=== PATIENT | female | born 1985 | race African-American/Black ===

== ENCOUNTER 2016-10-21 05:25 | Emergency (ER) | payer SELFPAY ==
[~2016-10-21] VITALS: Ht 160 cm; Wt 70.6 kg
[2016-10-21 05:39] VITALS: BP 136/97; PULSE 104; RESP 12; TEMP 98.9; O2SAT 98
[2016-10-21 06:16] LABS: BLOOD, URINE TRACE (NEG); GLUCOSE,URINE NEG (NEG); KETONE, URINE NEG (NEG); NITRITE,URINE NEG (NEG); PH, URINE 5.5 (5.0-8.5)
[2016-10-21 06:30] LABS: COMMENT (UR) CULT NOT INDICATED; CULTURE IF INDICATED CULT NOT INDICATED; RBC, URINE 0-3 /hpf (0-3); SQUAMOUS EPITHELIAL CELL URINE 0-5 /hpf (0-5); URINE COLOR STRAW (YELLW/STRAW); WBC, URINE 0-2 /hpf (0-5)
--- NOTE | 2016-10-21 06:46 | PD ---
HPI Chief Complaint: Packing And Wrapping Supervisor Problem/Complaint Time Seen by Provider: 06:43 Travel History International Travel<30 days: No Contact w/Intl Traveler<30days: No Traveled to known affect area: No History of Present Illness HPI The patient is a 31-year-old female, G0, P0, A0 that has had a foul-smelling vaginal discharge for 4 days. She denies any fever or abdominal pain. She denies any dysuria, frequency or urgency. She has had slight nausea without any vomiting. PFSH Past Medical History Anemia: Yes Blood Disorders: No Bipolar Disorder: Yes Anxiety: Yes Depression: Yes Cancer: No Cardiovascular Problems: No Diminished Hearing: No Endocrine: No Genitourinary: No Immune Disorder: No Musculoskeletal: No Neurologic: No Psychiatric: Yes (BIPOLAR) Reproductive: No Respiratory: No Immunizations Current: Yes Schizophrenia: Yes ?: Not LMP: 10/10/16 : 0 Para: 0 Miscarriage: 0 : 0 Past Surgical History Abdominal Surgery: No Cardiac Surgery: No Endocrine Surgery: No Genitourinary Surgery: No Gynecologic Surgery: No Thoracic Surgery: No Other Surgery: Yes Social History Alcohol Use: Yes (4 BEERS DAILY) Tobacco Use: Yes (1 PPD) Substance Use: No (QUIT COCAINE: 2016 STATED BY PT ON 10/21/16) Allergies-Medications (Allergen,Severity, Reaction): Coded Allergies: No Known Allergies (Verified , 10/21/16) Reported Meds & Prescriptions Reported Meds & Active Scripts Active No Active Prescriptions or Reported Medications Review of Systems Except as stated in HPI: all other systems reviewed are Neg Physical Exam Narrative GENERAL: The patient is alert, oriented 3 in no apparent distress. The heart rate is 104 and the blood pressure 136/97 but the rest the vital signs are normal. SKIN: Focused skin assessment warm/dry. HEAD: Atraumatic. Normocephalic. EYES: Pupils equal and round. No scleral icterus. No injection or drainage. ENT: No nasal bleeding or discharge. Mucous membranes pink and moist. NECK: Trachea midline. No JVD. CARDIOVASCULAR: Regular rate and rhythm. No murmur appreciated. RESPIRATORY: No accessory muscle use. Clear to auscultation. Breath sounds equal bilaterally. GASTROINTESTINAL: Abdomen soft, non-tender, nondistended. Hepatic and splenic margins not palpable. MUSCULOSKELETAL: No obvious deformities. No clubbing. No cyanosis. No edema. NEUROLOGICAL: Awake and alert. No obvious cranial nerve deficits. Motor grossly within normal limits. Normal speech. PSYCHIATRIC: Appropriate mood and affect; insight and judgment normal. GENITOURINARY: Normal external genitalia without lesions or erythema. Vaginal vault without blood but there is an off white, foamy, foul-smelling drainage. Cervical os was closed with clear drainage. No cervical motion tenderness. Uterus nontender and nonenlarged. Bilateral adnexa nontender without masses. Data Data Last Documented VS Vital Signs Date Time Temp Pulse Resp B/P Pulse Ox O2 Delivery O2 Flow Rate FiO2 10/21/16 07:02 16 10/21/16 05:39 98.9 104 136/97 98 Orders Urinalysis - C+S If Indicated (10/21/16 05:56) Gc And Chlamydia Pcr (10/21/16 06:43) Wet Prep Profile (10/21/16 06:43) Ed Urine Pregnancytest Poc (10/21/16 06:43) Labs Laboratory Tests Test 10/21/16 10/21/16 05:55 06:40 Urine Color STRAW Urine Turbidity CLEAR Urine pH 5.5 Urine Specific [place] 1.002 Urine Protein NEG mg/dL Urine Glucose (UA) NEG mg/dL Urine Ketones NEG mg/dL Urine Occult Blood TRACE Urine Nitrite NEG Urine Bilirubin NEG Urine Leukocyte Esterase TRACE Urine RBC 0-3 /hpf Urine WBC 0-2 /hpf Urine Squamous Epithelial 0-5 /hpf Cells Urine Bacteria NONE /hpf Microscopic Urinalysis Comment CULT NOT INDICATED Clue Cells (Wet Prep) PRESENT Vaginal Trichomonas (Wet Prep) PRESENT Vaginal Yeast (Wet Prep) NONE SEEN MDM Medical Decision Making Medical Screen Exam Complete: Yes Emergency Medical Condition: Yes Medical Record Reviewed: Yes Interpretation(s) The urine shows trace occult blood and trace leukocyte esterase but is otherwise normal and culture is not indicated. The wet prep is positive for clue cells and Trichomonas but is negative for yeast. Differential Diagnosis Trichomonas vaginitis, bacterial vaginosis, vaginal yeast infection, urinary tract infection Narrative Course The patient has Trichomonas vaginitis and bacterial vaginosis. Plan: The patient be given Flagyl 500 mg 3 times a day for 7 days. She needs to get her partner treated as well simultaneously. Diagnosis Primary Impression: Trichomonas vaginalis infection Additional Impression: Bacterial vaginosis Additional Instructions: The antibiotic is Flagyl and it is taken 3 times a day for 7 days. You cannot drink alcohol with Flagyl. You need to get your partner treated simultaneously or this will come right back. Follow-up with a tread tuber machine operator next week. Med/Other Pt SpecificInfo: Prescription(s) given Scripts Metronidazole (Flagyl)500 Mg [id number] Mg PO TID 7 Days Ref 0 Prov:Nader Whitney MD 10/21/16 Disposition: 01 DISCHARGE HOME Condition: Stable Nader Whitney MD Oct 21, 2016 06:46
[2016-10-21] MEDS ORDERED: METR-1 PO (07:21)
[2016-10-21] MEDS ORDERED: metroNIDAZOLE 500 MG TAB PO ONE (07:30)
[2016-10-21 11:52] LABS: CHLAMYDIA PCR NOT DETECTED (NOT DETECT); NEISSERIA PCR NOT DETECTED (NOT DETECT)
== END 2016-10-21 07:41 | disposition home or self-care (01) ==
LOC: PHED 05:25
DX: A59.01 Trichomonal vulvovaginitis (principal); N76.0 Acute vaginitis
CPT/HCPCS: 81001; 84703; 87210; 87491; 87591; 99283

== ENCOUNTER 2017-01-27 19:14 | Emergency (ER) | payer SELFPAY ==
[~2017-01-27] VITALS: Ht 160 cm; Wt 72.5 kg
[~2017-01-27 19:14] MED LIST: METR-1 PO
[2017-01-27 19:21] VITALS: BP 128/74; PULSE 114; RESP 16; TEMP 98.8; O2SAT 99
[2017-01-27] MEDS ORDERED: IBUPROFEN 600 MG TAB PO ONE (21:00)
--- NOTE | 2017-01-27 21:03 | PD ---
HPI Chief Complaint: Injury Time Seen by Provider: 20:53 Travel History International Travel<30 days: No Contact w/Intl Traveler<30days: No Traveled to known affect area: No History of Present Illness HPI 31-year-old female brought in by ambulance for evaluation of right second toe pain. The patient reports that she has had pain in this toe for the last 2 months and is located at her distal toe. She denies trauma. No fevers or chills. No history of diabetes. Pain is moderate, worsening, constant, worse with palpation. PFSH Past Medical History Anemia: Yes Blood Disorders: No Bipolar Disorder: Yes Anxiety: Yes Depression: Yes Cancer: No Cardiovascular Problems: No Diminished Hearing: No Endocrine: No Genitourinary: No Immune Disorder: No Musculoskeletal: No Neurologic: No Psychiatric: Yes (BIPOLAR) Reproductive: No Respiratory: No Immunizations Current: Yes Schizophrenia: Yes Tetanus Vaccination: Unknown Influenza Vaccination: No ?: Not LMP: 01/19/17 : 0 Para: 0 Miscarriage: 0 : 0 Past Surgical History Abdominal Surgery: No Cardiac Surgery: No Endocrine Surgery: No Genitourinary Surgery: No Gynecologic Surgery: No Thoracic Surgery: No Other Surgery: Yes Social History Alcohol Use: Yes (occaisonally) Tobacco Use: Yes (1 PPD) Substance Use: No (QUIT COCAINE: 2016 STATED BY PT ON 01/27/17) Allergies-Medications (Allergen,Severity, Reaction): Coded Allergies: No Known Allergies (Verified , 01/27/17) Reported Meds & Prescriptions Reported Meds & Active Scripts Active Review of Systems Except as stated in HPI: all other systems reviewed are Neg Physical Exam Narrative GENERAL: Well-developed, well-nourished, awake, alert, comfortable, no apparent distress. CARDIOVASCULAR: Regular rate and rhythm. Bilateral dorsalis pedis pulses are brisk and equal. RESPIRATORY: No accessory muscle use. MUSCULOSKELETAL: Right second toe without obvious deformity, without warmth or erythema, with mild hypertrophy of the toenail, no open wounds, normal capillary refill. NEUROLOGICAL: Awake and alert. No obvious cranial nerve deficits. Motor grossly within normal limits. Normal speech. PSYCHIATRIC: Appropriate mood and affect; insight and judgment normal. Data Data Last Documented VS Vital Signs Date Time Temp Pulse Resp B/P (MAP) Pulse Ox O2 Delivery O2 Flow Rate FiO2 01/27/17 19:21 98.8 114 16 128/74 (92) 99 Room Air Orders Orders Toe (Min 2vws) (01/27/17 ) Ibuprofen (Motrin) (01/27/17 21:00) Lidocaine 1% Inj (50 Ml) (Xylocaine 1% I (01/27/17 22:15) Lidocaine 2% Inj (Xylocaine 2% Inj) (01/27/17 22:06) MDM Medical Decision Making Medical Screen Exam Complete: Yes Emergency Medical Condition: Yes Differential Diagnosis Toe contusion, toe sprain, osteomyelitis less likely, ingrown toenail Narrative Course Right toe x-ray: CONCLUSION: No bony abnormality is seen at the second digit. There is surgical hardware at the distal tibia and fibula. Patient was made aware of x-ray findings. On physical exam there are no signs of infection such as paronychia or felon. No skin breaks to the second toe. The toe has normal capillary refill, however is tender around the toenail. She has asked me to take the toenail off. She understands that there are risks to this procedure including continued pain and infection as well as bleeding. She also understands that the toenail may not grow back. She still would like me to try to take her toenail off that she believes this may leave her pain. Right second toe digital block was performed and the toenail was removed. There was no bleeding. On the nailbed there is a firm/slightly darkened nodule. I told the patient that she must follow-up with podiatry regarding this as this could be a melanoma. She understands the importance of follow-up. She is stable for discharge home with outpatient follow-up. Procedures Procedure Narrative Right second toe digital block: Right toe was prepped with ChloraPrep. A total of 2 cc of 2% lidocaine was used to perform a digital block. Tolerated well. No Medications. Right second toenail removal: After digital block was performed, under sterile conditions the toenail was removed with gentle traction using basic pickups. Tolerated well. No complications. No bleeding. Diagnosis Primary Impression: Ingrown toenail Referrals: Maicol Chatman DPMark 3 days Pin Setter Primary Care Physician 3 days Additional Instructions: Follow-up with liquefied natural gas operator Dr. Chatman this week as there may be a melanoma which is a skin cancer on your nail bed. Follow-up with a primary care physician this week. Return to the emergency department for worsening symptoms or any other concerns. Scripts No Active Prescriptions or Reported Meds Disposition: 01 DISCHARGE HOME Condition: Stable Richmond Caldera MD Jan 27, 2017 21:03
--- NOTE | 2017-01-27 21:53 | RADRPT ---
EXAM DATE/TIME: 01/27/2017 21:15 [facility] COMPARISON: No previous studies available for comparison. INDICATIONS : Pain with no known injury. MEDICAL HISTORY : None. SURGICAL HISTORY : Bilateral leg rods. ENCOUNTER: Initial ACUITY: 2 days PAIN SCORE: 10/10 LOCATION: Right Second Digit. FINDINGS: Examination of the second digit of the right foot demonstrates no evidence of fracture or dislocation . The soft tissues are intact. Surgical hardware is seen in the distal tibia and fibula. CONCLUSION: No bony abnormality is seen at the second digit. There is surgical hardware at the distal tibia and f ibula. Seamus Andersen MD on January 27, 2017 at 21:50 Board Certified Radiologist. This report was verified electronically.
[2017-01-27] MEDS ORDERED: LIDOCAINE HCL 2% 50 ML VIAL ONE (22:06)
[2017-01-27] MEDS ORDERED: LIDOCAINE HCL 1% 50 ML VIAL INFIL ONE (22:15)
== END 2017-01-27 22:48 | disposition home or self-care (01) ==
LOC: NEPD 19:14
DX: L60.0 Ingrowing nail (principal)
CPT/HCPCS: 11730; 64450; 73660